=== PATIENT | female | born 1985 | race African-American/Black ===

== ENCOUNTER 2022-07-12 10:19 | Outpatient (REF) | payer OTHER, SELFPAY ==
[2022-07-12 11:14] LABS: Baso%MD 0.7 %; Eos%MD 2.3 %; Hematocrit 37.4 % (37.0-47.0); Hemoglobin 12.2 g/dl (12.0-16.0); IG%MD 0.3 %; Lymph%MD 41.3 %; Mean Corpuscular HGB Conc 32.6 g/dl (31.0-35.0); Mean Corpuscular Hemoglobin 27.7 pg (27.0-33.0); Mean Platelet Volume 10.2 fL (9.4-12.3); Mono%MD 5.9 %; Neut%MD 49.5 %; Platelet Count 356 X10*3/uL (160-400); Red Cell Distribution Width 12.1 % (11.0-16.0); White Blood Count 7.1 X10*3/uL (4.8-10.8)
[2022-07-12 11:52] LABS: Band Neutrophils Percent 0 % (3-5); Basophils Abs Manual 0.1 X10*3/uL (0.0-0.2); Basophils Percent Manual 1 % (0-2); Lymphocytes Percent Manual 42 % (20-40); Monocytes Absolute Manual 0.5 X10*3/uL (0.1-1.2); Monocytes Percent Manual 7 % (2-11); Neutrophils Absolute Manual 3.6 X10*3/uL (2.0-8.3); Neutrophils Percent Manual 50 % (45-73)
[2022-07-12 11:53] LABS: Alanine Aminotransferase 11 U/L (0-31); Albumin Level 4.3 g/dL (3.5-5.0); Alkaline Phosphatase 69 U/L (39-117); Anion Gap 12 (12-20); Aspartate Amino Transferase 13 U/L (5-31); Bilirubin Total 0.2 mg/dL (0.0-1.0); Blood Urea Nitrogen 19 mg/dL (9-16); Calcium 9.7 mg/dL (8.4-10.2); Carbon Dioxide 26 mmol/L (22-29); Chloride 104 mmol/L (96-108); Estimated Glomerular Filt Rate > 60; Glucose Fasting 108 mg/dL (60-99); Platelet Estimate NORMAL (NORMAL); Platelet Morphology Comment NORMAL; Potassium 4.2 mmol/L (3.3-5.1); RBC Morphology NORMAL; Sodium 138 mmol/L (135-145); Total Protein 7.9 g/dL (6.5-8.0)
[2022-07-12 12:13] LABS: Folate 12.5 ng/mL (> or = 4.0); Vitamin B12 416 pg/mL (200-900)
[2022-07-14 11:53] LABS: Syphilis Screen Nonreactive (Nonreactive)
[2022-07-15 02:33] LABS: Herpes Simplex Type 1 IgG <0.90 index; Herpes Simplex Type 2 IgG <0.90 index
[2022-07-17 15:03] LABS: Vitamin D 25-OH, D2 <4 ng/mL; Vitamin D 25-OH, D3 14 ng/mL; Vitamin D 25-OH, Total 14 ng/mL (30-100)
== END 2022-07-12 10:20 | disposition home or self-care (01) ==
LOC: HO.HMGCLDS 10:19
PROVIDERS: PCP Hospitalist; Visit Provider Nurse Practitioner Acute Care
DX: K14.0 Glossitis (principal); Z59.00 Homelessness unspecified
CPT/HCPCS: 36415; 80053; 82306; 82607; 82746; 85007; 85027; 86695; 86696; 86780

== ENCOUNTER 2023-07-16 01:57 | Emergency (ER) | payer OTHER, SELFPAY ==
--- NOTE | 2023-07-16 | ECG_ITS ---
Test Reason : CHEST PAIN Blood Pressure : / mmHG Vent. Rate : 084 BPM Atrial Rate : 084 BPM P-R Int : 132 ms QRS Dur : 070 ms QT Int : 382 ms P-R-T Axes : 016 087 067 degrees QTc Int : 451 ms Normal sinus rhythm Normal ECG When compared with ECG of 20-DEC-2013 07:49, No significant change was found Referred By: Generic ED Physician Electronically Signed By:JM MINER
--- NOTE | ~2023-07-16 | XR_ITS ---
EXAMINATION: XR CHEST CLINICAL INFORMATION: Chest pain COMPARISON: None available. TECHNIQUE: Frontal view of the chest was obtained. FINDINGS: Lungs are well-inflated and clear. Trachea is midline in position. No interstitial disease, consolidation or mass. No pleural effusion or pneumothorax. Cardiac silhouette and pulmonary vessels are normal in size. The mediastinum and bharathi have normal contour. The visualized bones and upper abdomen are unremarkable. XR/XR chest 1V IMPRESSION: Lungs have a normal appearance. No acute cardiopulmonary abnormality.
[2023-07-16 02:05] VITALS: BP 131/85; PULSE 85; RESP 18; TEMP 36.9; O2SAT 98; BMI 31.7
[2023-07-16 02:19] LABS: Basophils Absolute Auto 0.1 X10*3/uL (0.0-0.2); Basophils Percent Auto 0.5 % (0-2); Eosinophils Absolute Auto 0.3 X10*3/uL (0.0-0.4); Eosinophils Percent Auto 2.5 % (0-4); Hematocrit 35.7 % (37.0-47.0); Hemoglobin 12.1 g/dl (12.0-16.0); Imm Gran Abs Auto 0.01 X10*3/uL (0.00-0.03); Imm Gran Pct Auto 0.1 % (0.0-0.4); Lymphocytes Absolute Auto 5.5 X10*3/uL (1.2-4.9); Lymphocytes Percent Auto 54.6 % (20-40); Mean Corpuscular HGB Conc 33.9 g/dl (31.0-35.0); Mean Corpuscular Volume 82.6 fL (80.0-98.0); Mean Platelet Volume 9.5 fL (9.4-12.3); Monocytes Absolute Auto 0.6 X10*3/uL (0.1-1.2); Monocytes Percent Auto 5.6 % (2-11); Neutrophils Absolute Auto 3.7 x10*3/uL (2.0-8.3); Neutrophils Percent Auto 36.7 % (45-73); Platelet Count 352 X10*3/uL (160-400); Red Blood Count 4.32 X10*6/uL (4.20-5.50); SCAN SMEAR FLAG 1; White Blood Count 10.1 X10*3/uL (4.8-10.8)
[2023-07-16 02:20] LABS: MANUAL DIFF FLAG SCAN
[2023-07-16 02:33] LABS: Alanine Aminotransferase 11 U/L (0-31); Alkaline Phosphatase 63 U/L (39-117); Anion Gap 14 (12-20); Aspartate Amino Transferase 14 U/L (5-31); Bilirubin Total 0.1 mg/dL (0.0-1.0); Blood Urea Nitrogen 11 mg/dL (9-16); Calcium 9.3 mg/dL (8.4-10.2); Carbon Dioxide 23 mmol/L (22-29); Chloride 105 mmol/L (96-108); Creatinine Clr Calc Pharmacy 94.4; Estimated Glomerular Filt Rate > 60; Glucose Random 98 mg/dL (60-115); Potassium 3.4 mmol/L (3.3-5.1); Sodium 139 mmol/L (135-145); Total Protein 7.9 g/dL (6.5-8.0)
[2023-07-16 02:41] LABS: Troponin-I High Sensitivity < 2.7 ng/L (<3.5-17.0)
[2023-07-16 02:43] LABS: SLIDE REVIEW VERIFIED
[2023-07-16 05:13] VITALS: PULSE 82
[2023-07-16 06:02] VITALS: BP 122/69; PULSE 73; RESP 16; TEMP 36.7; O2SAT 97
--- NOTE | 2023-07-16 06:16 | ED.CHESTPAIN ---
HPI - Chest Pain General Chief Complaint: Chest Pain Stated Complaint: chest pain/arm & neck pain Time Seen by Provider: 07/16/23 05:09 History of Present Illness HPI narrative: Patient is a 37-year-old female presents today with having chest pain that has been ongoing for the last 3 days it is a constant pain. It is not associated with any shortness breath or diaphoresis. Patient has no history diabetes no history of hypertension no history of high cholesterol no history of smoking no history of NE no family history of NE. no history of blood clots no history of travel no history of control pills. No diaphoresis. No leg swelling. Patient from home. Denies any coughing congestion. No sudden deaths in the family. No radiation the pain. The pain is 1 spot on chest Related Data Home Medications Medication Instructions Recorded Confirmed cetirizine 10 mg tablet (Zyrtec) 10 mg PO DAILY PRN 07/12/22 Previous Rx's Medication Instructions Recorded benzocaine 10 % mucosal gel 1 appl mucous membrane TID PRN 07/12/22 (Anbesol (benzocaine)) mouth irritation #9 grams azithromycin 250 mg tablet See Rx Instructions PO .COMPLEX #6 07/18/22 tabs cholecalciferol (vitamin D3) 50 50 mcg PO DAILY #90 caps 07/18/22 mcg (2,000 unit) capsule cholecalciferol (vitamin D3) 1,250 1,250 mcg PO QWEEK #14 caps 07/21/22 mcg (50,000 unit) capsule sertraline 100 mg tablet 100 mg PO DAILY #90 tabs 08/07/22 Allergies Allergy/AdvReac Type Severity Reaction Status Date / Time No Known Allergies Allergy Verified 07/16/23 02:05 Review of Systems Review of Systems: Positive chest pain Yes all other systems are reviewed and are negative PMFSH Past Medical History Attestation statement: The following information was validated with the patient. Medical History Anxiety Family History Family History Father ADHD (attention deficit hyperactivity disorder) Mother Bipolar 1 disorder, depressed Depression Anxiety Social History Social History Housing: Condominium Patient Tobacco Use Status: Never used Tobacco Smoked in Last 30 Days: No e-Cigarette/Vaping Use: Never Used Use of substances other than those prescribed or required for medical reasons: No Advance Directives: No Advance Directives Information Provided: No Patient : No Current occupational status: employed Physical Exam Vital Signs: Vital Signs: Last Vital Signs Temp 98.1 F 07/16/23 06:02 Pulse 73 07/16/23 06:02 Resp 16 07/16/23 06:02 BP 122/69 07/16/23 06:02 Pulse Ox 97 07/16/23 06:02 O2 Del Method Room Air 07/16/23 06:02 BMI result Body Mass Index 31.7 Appearance: Alert. Oriented X3. No acute distress. Eyes: Pupils equal, round and reactive to light. ENT: Pharynx normal. Neck: Normal inspection. Neck supple. No lymph nodes noted. No crepitus CVS: Normal heart rate and rhythm. Pulses normal. Normal S1 and S2 Respiratory: No respiratory distress. Breath sounds normal. No Wheezing. No rales Abdomen: Soft and nontender. No rigidity. No distention. good BS x4 Skin: Skin warm and dry. Normal skin color. Normal skin turgor. Extremities: No lower extremity edema. Neurovascular intact to all extremities. No Lacerations. No Rash Neuro: Oriented X 3. No motor deficit. No sensory deficit. Moving all extermities. No slurred speech Medical Decision Making Medical Decision Making [facility] Narrative: Patient's chest pain atypical. Troponin is negative in the setting of having constant pain for 3 days atypical history no risk factor 37 years old patient's heart score is less than 3. Will have patient follow-up on an outpatient basis. Patient's chest pain knots anonymous with PE. Will discharge patient home into chest x-ray is negative. Chest x-ray done my interpretation chest x-ray grossly negative for any acute evidence of pneumonia no pneumothorax normal mediastinum. Differential Diagnosis Differential Diagnoses: The differential diagnosis associated with the presentation includes ACS, pneumonia, pneumothorax, PE Admission/Observation Consideration of admission/observation: Escalation of care including admission/observation considered Lab Data [facility] Lab Attestation statement: I reviewed the patient's lab results. 07/16/23 02:12 07/16/23 02:12 Labs: Lab Results 07/16/23 Range/Units 02:12 WBC 10.1 (4.8-10.8) X10*3/uL RBC 4.32 (4.20-5.50) X10*6/uL Hgb 12.1 (12.0-16.0) g/dl Hct 35.7 L (37.0-47.0) % MCV 82.6 (80.0-98.0) fL MCH 28.0 (27.0-33.0) pg MCHC 33.9 (31.0-35.0) g/dl RDW 12.0 (11.0-16.0) % Plt Count 352 (160-400) X10*3/uL MPV 9.5 (9.4-12.3) fL Immature Gran % (Auto) 0.1 (0.0-0.4) % Neut % (Auto) 36.7 L (45-73) % Lymph % (Auto) 54.6 H (20-40) % [place] % (Auto) 5.6 (2-11) % Eos % (Auto) 2.5 (0-4) % Baso % (Auto) 0.5 (0-2) % Lymph # (Auto) 5.5 H (1.2-4.9) X10*3/uL [place] # (Auto) 0.6 (0.1-1.2) X10*3/uL Eos # (Auto) 0.3 (0.0-0.4) X10*3/uL Baso # (Auto) 0.1 (0.0-0.2) X10*3/uL Abs Immat Gran (auto) 0.01 (0.00-0.03) X10*3/uL Absolute Neuts (auto) 3.7 (2.0-8.3) x10*3/uL Absolute Nucleated RBC 0.000 (0.0-0.012) X10*3/uL Nucleated RBC % (auto) 0.0 (0.0-0.2) /100WBC Smear Tech's Comments VERIFIED Sodium 139 (135-145) mmol/L Potassium 3.4 (3.3-5.1) mmol/L Chloride 105 (96-108) mmol/L Carbon Dioxide 23 (22-29) mmol/L Anion Gap 14 (12-20) BUN 11 (9-16) mg/dL Creatinine 0.73 (0.5-1.4) mg/dL Estim Creat Clear Calc 94.4 Estimated GFR > 60 Random Glucose 98 (60-115) mg/dL Calcium 9.3 (8.4-10.2) mg/dL Total Bilirubin 0.1 (0.0-1.0) mg/dL AST 14 (5-31) U/L ALT 11 (0-31) U/L Alkaline Phosphatase 63 (39-117) U/L Troponin I High Sens < 2.7 (<3.5-17.0) ng/L Total Protein 7.9 (6.5-8.0) g/dL Albumin 4.0 (3.5-5.0) g/dL Independent Interpretation I performed an independent interpretation of an: EKG (Sinus heart rate is 80 UT QRS QTC was normal limits no ST segment elevation) and Plain X-Ray (Chest x-ray grossly negative) Discharge Plan Discharge Clinical Impression: Chest pain Patient Disposition: Home, Self-Care Instructions: Chest Pain (ED) Prescriptions: No Action cholecalciferol (vitamin D3) 50 mcg (2,000 unit) capsule 50 mcg PO DAILY Qty: 90 0RF azithromycin 250 mg tablet See Rx Instructions PO .COMPLEX Qty: 6 0RF Rx Instructions: For 250 mg dose pack: take 500 mg today (day 1), then 250 mg for 4 days (days 2-5) PO cholecalciferol (vitamin D3) 1,250 mcg (50,000 unit) capsule 1,250 mcg PO QWEEK Qty: 14 3RF sertraline 100 mg tablet 100 mg PO DAILY Qty: 90 1RF cetirizine [Zyrtec] 10 mg tablet 10 mg PO DAILY PRN Anbesol (benzocaine) 10 % gel 1 appl mucous membrane TID PRN (Reason: mouth irritation) Qty: 9 0RF Referrals: Sai Maya MD [Physician] -
[2023-07-16 06:44] VITALS: BP 122/69; PULSE 73; RESP 16; TEMP 36.7; O2SAT 97
== END 2023-07-16 06:49 | disposition home or self-care (01) ==
PROVIDERS: Emergency Provider Emergency Medicine Emergency Medical Services
DX: R07.89 Other chest pain (principal); M54.2 Cervicalgia; Z79.899 Other long term (current) drug therapy
CPT/HCPCS: 36415; 71045; 80053; 84484; 85025; 93005; 99283; 99285

== ENCOUNTER → 2023-07-16 02:00 | Outpatient (BNV) | payer OTHER, SELFPAY | PROVIDERS: Emergency Provider Emergency Medicine Emergency Medical Services; Visit Provider Internal Medicine | DX: R07.9 Chest pain, unspecified (principal) | CPT/HCPCS: 93010 ==

== ENCOUNTER 2023-07-27 15:56 | Emergency (ER) | payer OTHER, SELFPAY ==
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
[2023-07-27 16:10] VITALS: BP 124/78; BP 126/80; PULSE 88; PULSE 90; RESP 16; TEMP 37.1; O2SAT 100; O2SAT 98; BMI 31.6
[2023-07-27 18:45] VITALS: BP 114/70; PULSE 92; RESP 18; TEMP 37; O2SAT 98
== END 2023-07-27 18:46 | disposition home or self-care (01) ==
PROVIDERS: Emergency Provider Student in an Organized Health Care Education/Training Program
DX: S29.9XXA Unspecified injury of thorax, initial encounter (principal); S13.4XXA Sprain of ligaments of cervical spine, initial encounter; R51.9 Headache, unspecified; M54.2 Cervicalgia; M25.561 Pain in right knee; M79.642 Pain in left hand; V43.52XA Car driver injured in collision with other type car in traffic accident, initial encounter; Y93.9 Activity, unspecified; Y92.410 Unspecified street and highway as the place of occurrence of the external cause; Y99.8 Other external cause status; Z79.899 Other long term (current) drug therapy
CPT/HCPCS: 70450; 71250; 72125; 73130; 73562; 99283; 99284

== ENCOUNTER 2023-07-31 10:13 | Outpatient (AMB) | payer OTHER, SELFPAY ==
[2023-07-31 10:15] VITALS: BP 120/68; PULSE 96; O2SAT 98; BMI 31.9
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
== END 2023-07-31 11:27 | disposition home or self-care (01) ==
PROVIDERS: PCP Physician Assistant; Visit Provider Physician Assistant Medical
DX: M62.830 Muscle spasm of back (principal)
CPT/HCPCS: 99213

== ENCOUNTER 2023-08-11 09:08 | Outpatient (AMB) | payer OTHER, SELFPAY ==
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
[2023-08-11 09:15] VITALS: BP 118/62; PULSE 90; RESP 12; BMI 33.2
== END 2023-08-11 10:00 | disposition home or self-care (01) ==
PROVIDERS: PCP Physician Assistant; Visit Provider Physician Assistant
DX: M54.2 Cervicalgia (principal); M54.50 Low back pain, unspecified; V89.2XXA Person injured in unspecified motor-vehicle accident, traffic, initial encounter; M25.571 Pain in right ankle and joints of right foot; J98.59 Other diseases of mediastinum, not elsewhere classified
CPT/HCPCS: 99214

== ENCOUNTER 2023-08-18 08:03 | Outpatient (AMB) | payer OTHER, SELFPAY ==
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
[2023-08-18 08:11] VITALS: BP 122/78; PULSE 95; RESP 14; TEMP 37.1; O2SAT 98; BMI 31.5
== END 2023-08-18 08:55 | disposition home or self-care (01) ==
PROVIDERS: PCP Physician Assistant; Visit Provider Physician Assistant
DX: Z00.00 Encounter for general adult medical examination without abnormal findings (principal); E55.9 Vitamin D deficiency, unspecified; F41.8 Other specified anxiety disorders; M54.2 Cervicalgia
CPT/HCPCS: 1124F; 99395

== ENCOUNTER 2023-08-18 09:07 | Outpatient (REF) | payer OTHER, SELFPAY ==
[2023-08-18 11:36] LABS: MANUAL DIFF FLAG NO
[2023-08-18 11:41] LABS: Basophils Percent Auto 0.5 % (0-2); Eosinophils Absolute Auto 0.1 X10*3/uL (0.0-0.4); Hematocrit 36.1 % (37.0-47.0); Hemoglobin 11.9 g/dl (12.0-16.0); Imm Gran Abs Auto 0.01 X10*3/uL (0.00-0.03); Imm Gran Pct Auto 0.2 % (0.0-0.4); Lymphocytes Absolute Auto 2.6 X10*3/uL (1.2-4.9); Lymphocytes Percent Auto 42.7 % (20-40); Mean Corpuscular Hemoglobin 27.8 pg (27.0-33.0); Mean Corpuscular Volume 84.3 fL (80.0-98.0); Mean Platelet Volume 10.2 fL (9.4-12.3); Monocytes Absolute Auto 0.4 X10*3/uL (0.1-1.2); Neutrophils Percent Auto 48.6 % (45-73); Platelet Count 350 X10*3/uL (160-400); Red Blood Count 4.28 X10*6/uL (4.20-5.50); Red Cell Distribution Width 12.5 % (11.0-16.0); White Blood Count 6.1 X10*3/uL (4.8-10.8)
[2023-08-18 12:34] LABS: Alanine Aminotransferase 13 U/L (0-31); Albumin Level 4.1 g/dL (3.5-5.0); Alkaline Phosphatase 63 U/L (39-117); Anion Gap 11 (12-20); Aspartate Amino Transferase 17 U/L (5-31); Bilirubin Total 0.4 mg/dL (0.0-1.0); Blood Urea Nitrogen 16 mg/dL (9-16); Calcium 9.5 mg/dL (8.4-10.2); Carbon Dioxide 28 mmol/L (22-29); Chloride 104 mmol/L (96-108); Cholesterol 257 mg/dL (<200); Estimated Glomerular Filt Rate > 60; Glucose Random 95 mg/dL (60-115); HDL Cholesterol 39 mg/dL (>40); Iron 108 mcg/dL (30-160); LDL Cholesterol Calculated 191 mg/dL (<100); Percent Iron Saturation 43 % (15-50); Potassium 3.6 mmol/L (3.3-5.1); Sodium 139 mmol/L (135-145); Total Iron Binding Capacity 253 mcg/dL (228-428); Total Protein 8.1 g/dL (6.5-8.0); Triglycerides 137 mg/dL (<150); Unsaturated Iron Binding 145 ug/dL
[2023-08-18 12:41] LABS: Ferritin 76 ng/mL (10-122); TSH reflex Free T4 1.52 uIU/mL (0.32-4.0); Vitamin D 25-OH Total 33.1 ng/mL (>30)
[2023-08-18 12:55] LABS: Vitamin B12 514 pg/mL (200-900)
== END 2023-08-18 09:08 | disposition home or self-care (01) ==
LOC: HO.WFDLDS 09:07
PROVIDERS: Visit Provider Physician Assistant
DX: Z00.00 Encounter for general adult medical examination without abnormal findings (principal); E55.9 Vitamin D deficiency, unspecified; F41.8 Other specified anxiety disorders
CPT/HCPCS: 36415; 80053; 80061; 82306; 82607; 82728; 82746; 83540; 84443; 85025

== ENCOUNTER 2023-09-14 09:00 | Outpatient (RCR) | payer OTHER, SELFPAY ==
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
== END 2023-11-25 12:30 | disposition home or self-care (01) ==
LOC: HO.PT 09:00
PROVIDERS: PCP Physician Assistant; Visit Provider Physician Assistant
DX: M54.50 Low back pain, unspecified (principal); M54.2 Cervicalgia; V89.2XXD Person injured in unspecified motor-vehicle accident, traffic, subsequent encounter
CPT/HCPCS: 97014; 97110; 97112; 97140; 97161

== ENCOUNTER 2023-09-16 10:14 | Outpatient (AMB) | payer OTHER, SELFPAY ==
--- NOTE | 2023-09-16 10:25 | MHC.PC.OV ---
Vital Signs 09/16/23 10:26 Height 5 ft 0.35 in Weight 165 lb 2 oz BMI 31.9 BP 102/68 Blood Pressure Location Lt radial Position Sitting Respiration 14 Pulse 100 Pulse Source Pulse Oximeter Pulse Oximetry (%) 97 Oxygen Delivery Method Room Air Intake Visit Reasons: depression med Intake Note: Follow up depression Tank Builder And Erector Required: No Allergies No Known Allergies Allergy (Verified 09/16/23 10:25) Medication List - Last Reconciled 09/16/23 by Krystyna Connelly PA-C bupropion HCl XL (Wellbutrin XL) 300 mg PO QAM cetirizine (Zyrtec) 10 mg PO DAILY PRN cyclobenzaprine 5 mg PO TID PRN 7 days ibuprofen 600 mg PO Q8H PRN sertraline 100 mg PO DAILY Tobacco use date assessed: 08/18/23 Dental Screening Dental Screen Date: 08/11/23 HPI depression med HPI Details Patient is a 37-year-old female who presents today for a follow up. Psych: At our last visit she was started on Wellbutrin in addition to her sertraline for her anxiety and depression. She states that it has helped with her motivation and somewhat with her emotional eating. She is wondering if we could try an increased dose because she does not like that she emotionally eats. She states that she is very frustrated with her weight and would feel happier if she lost weight. Has an MRI booked for a mediastinal mass next Thursday and states that she does get claustrophobic. She thinks that she would benefit from possibly taking something for this procedure. General: She would like to see a lean leader. Tries to increase her salads but states that she just does not like salads and wants to try other foods especially now that she has high cholesterol. CV: Blood pressure today is WNL. Denies any chest pain, shortness on breath or palpitations. [facility] Medical History (Updated 09/16/23 @ 10:45 by Krystyna Connelly PA-C) Obesity (BMI 30.0-34.9) Dyslipidemia Anxiety Family History (Updated 08/11/23 @ 10:38 by Edie Mondragon CMA) Father ADHD (attention deficit hyperactivity disorder) Hypercholesteremia Prostate cancer Alcoholism Psychiatric disorder Mother Bipolar 1 disorder, depressed Depression Anxiety HTN (hypertension) Hypercholesteremia Diabetes Alcoholism Psychiatric disorder Maternal Grandmother Diabetes Ovarian cancer Psychiatric disorder Other Mental disorder Substance abuse Social History Housing: Condominium Patient Tobacco Use Status: Never used Tobacco e-Cigarette/Vaping Use: Never Used Second Hand Smoke Exposure: No service: No 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 1. Little interest or pleasure in doing things: nearly every day 2. Feeling down, depressed, or hopeless: not at all 3. Trouble falling or staying asleep, or sleeping too much: not at all 4. Feeling tired or having little energy: nearly every day 5. Poor appetite or overeating: nearly every day 6. Feeling bad about yourself - or that you are a failure or have let yourself or your family down: not at all 7. Trouble concentrating on things, such as reading the newspaper or watching television: nearly every day 8. Moving or speaking so slowly that other people could have noticed. Or the opposite - being so fidgety or restless that you have been moving around a lot more than usual: several days 9. Thoughts that you would be better off or of hurting yourself in some way: not at all Total score: 13 Depression Screening Interpretation: Positive Depression Screening Done: Yes 22046 - PHQ-9 Billing: Yes Source: Developed by Drs. Donald Lawler, Candelaria Sebastian, Uriel Pineda and colleagues, with an educational reyna from [employer]. Thrive Questionnaire Date Thrive assessed: 08/11/23 JANE-7 AMB Questionnaire JANE-7 Date JANE - 7 assessed: 09/16/23 Feeling nervous, anxious, or on edge: 2 = More than half the days Not being able to stop or control worryin = Nearly every day Worrying too much about different things: 2 = More than half the days Trouble relaxin = More than half the days Being so restless that it is hard to sit still: 0 = Not at all Becoming easily annoyed or irritable: 0 = Not at all Feeling afraid as if something awful might happen: 3 = Nearly every day Total JANE-7 score (0-4 normal; 5-9 mild; 10-14 moderate; 15-21 severe): 12 Source: Developed by Drs. Donald Lawler, Candelaria Sebastian, Uriel Pineda and colleagues, with an educational reyna from [employer]. JANE-7 Assessment Billing JANE-7 Assessment Tool: JANE-7 Assessment 52094 Physical exam (Primary Care) Vital Signs: Last Vital Signs Pulse 100 09/16/23 10:26 Resp 14 09/16/23 10:26 BP 102/68 09/16/23 10:26 Pulse Ox 97 09/16/23 10:26 Oxygen Delivery Method Room Air 09/16/23 10:26 BMI result Body Mass Index 31.9 BMI Assessment/Plan discussion: High BMI High, discussed plan: lifestyle, weight reduction and physical activity Tobacco/Smoking Status: Tobacco use Status Tobacco use date assessed 08/18/23 09/16/23 10:30 Patient Tobacco Use Status Never used Tobacco 09/16/23 10:30 e-Cigarette/Vaping Use Never Used 09/16/23 10:30 PHQ-9: PHQ-9 Score PHQ-9: Total score 13 09/16/23 10:42 Depression Screening Interpretation: Positive Thrive Assessment: Date of Thrive Assessment Date Thrive assessed 08/11/23 09/16/23 10:30 Const Orientation/consciousness: patient oriented x3 HENMT Ears: hearing grossly normal bilaterally Neck Thyroid: Thyroid normal Lymphatic: no lymphadenopathy noted Resp Auscultation: clear to auscultation bilaterally Cardio Rate: regular rate Rhythm: regular rhythm Heart sounds: S1 normal heart sound present and S2 normal heart sound present GI Inspection: Yes normal to inspection Palpation (GI): Soft to palpation and Other GI palpation findings present (nontender, no cva tenderness) Auscultation: normoactive bowel sounds Rectal Exam - Female: deferred Skin General skin exam: no rashes or lesions noted Neuro General: patient oriented x3, gait normal and no focal motor deficits Assessment and Plan Assessment & Plan (1) Anxiety with depression: Code(s): F41.8 - Other specified anxiety disorders Plan: increased wellbutrin. will give rx for lorazepam. discussed she will need a ride to and from MRI. advised to avoid drinking and or driving with this medication. discussed addiction risk. (2) Dyslipidemia: Code(s): E78.5 - Hyperlipidemia, unspecified Plan: referral to nutrition. phone number provided. will recheck labs in 6 months. Plan f/u 6 weeks for med check or sooner prn. pt understands and agrees with the plan. Orders: Referrals Oracle Security Consultant Nutrition Referral E66.9 - Obesity, unspecified, E78.5 - Hyperlipidemia, unspecified, F41.8 - Other specified anxiety disorders Medications: New bupropion HCl XL (Wellbutrin XL) 300 mg PO QAM 90 tabs 1RF Coding Level of Care Code Est Pt Level 4 (92660) Complex EM visit Add On G2211 Diagnoses Anxiety with depression F41.8 Dyslipidemia E78.5 Additional Codes JAEN-7 Assessment Billing - JANE-7 Assessment Tool: JANE-7 Assessment 23973 ([id number])
[2023-09-16 10:26] VITALS: BP 102/68; PULSE 100; RESP 14; O2SAT 97; BMI 31.9
== END 2023-09-16 10:55 | disposition home or self-care (01) ==
PROVIDERS: PCP Physician Assistant; Visit Provider Physician Assistant
DX: F41.8 Other specified anxiety disorders (principal); E78.5 Hyperlipidemia, unspecified
CPT/HCPCS: 96127; 99214; G2211

== ENCOUNTER 2023-09-25 10:43 | Outpatient (REF) | payer OTHER, SELFPAY ==
--- NOTE | ~2023-09-25 | MR_ITS ---
EXAMINATION: MR CHEST WITHOUT AND WITH CONTRAST CLINICAL INFORMATION: Follow-up mediastinal lesion. COMPARISON: Previous chest x-ray June [address] July 2023. TECHNIQUE: Sagittal, axial and coronal sequences through the chest with and without contrast. Patient received 7.5 mL IV Gadavist contrast. FINDINGS: There is a 1 x 2 cm low signal T1, high signal T2 weighted sequences lesion in the anterior superior mediastinum just superior to the manubrium. This does not demonstrate enhancement and likely represents a cyst. Given this is slightly high signal on noncontrast chest CT this probably represents a proteinaceous cyst. No enlarged hilar or mediastinal lymph nodes. Normal heart size. Vascular structures appear normal. Lungs are clear. No pleural effusion. No chest wall mass or enlarged axillary lymph nodes. Images of the lower neck and/or upper abdomen on coronal and sagittal sequences unremarkable. Bone marrow signal is normal. MR/MR chest wo/w con IMPRESSION: 1 x 2 cm low signal T1, high signal T2 nonenhancing lesion in the anterior superior mediastinum just above the manubrium suggestive of a cyst. Given that this is slightly high attenuation on noncontrast enhanced CT this probably represents a proteinaceous cyst. Imaging follow-up in 6 months to ensure stability recommended.
[2023-09-25] MEDS: gadobutroL 7.5 ML VIAL IVPUSH (12:11)
== END 2023-09-25 10:44 | disposition home or self-care (01) ==
LOC: HO.MRI 10:43
PROVIDERS: PCP Physician Assistant; Visit Provider Physician Assistant
DX: J98.59 Other diseases of mediastinum, not elsewhere classified (principal)
CPT/HCPCS: 71552; A9585

== ENCOUNTER 2023-10-12 10:58 | Outpatient (AMB) | payer OTHER, SELFPAY ==
--- NOTE | 2023-10-12 11:13 | MHC.AMNUTRGE ---
VS Expanded 10/12/23 11:14 10/19/23 12:41 Height 5 ft 5 ft Weight 159 lb 2.78 oz 159 lb BMI 31.1 31.0 Intake Visit Reasons: Obesity/CONFIRMED Allergies No Known Allergies Allergy (Verified 09/16/23 10:25) Nutrition Presentation Details: Pt presents for MNT for dyslipidemia. THe Pt was referred PCP, Hui Pt has hx of obesity, anxiety, depression Typical meal intake B; 7am bagel with egg/cheese, juice or oatmeal (flavored maple 2, water and protein powder), water or juice snack: peanut butter cracker water or juice or fruit L chicken nuggets- fast meals/snacks D: rice/banes food frequency fruit: 0-1/d vex/wk dairy: 2-3/day fish: 0-1/m physical activity: daily life activities etoh/smoking --- BS Monitoring Most Recent Diabetes Results: Cholesterol 257 mg/dL (<200) H 08/18/23 HDL Cholesterol 39 mg/dL (>40) L 08/18/23 Triglycerides 137 mg/dL (<150) 08/18/23 Creatinine 0.74 mg/dL (0.5-1.4) 08/18/23 Blood Urea Nitrogen 16 mg/dL (9-16) 08/18/23 Sodium 139 mmol/L (135-145) 08/18/23 Potassium 3.6 mmol/L (3.3-5.1) 08/18/23 Chloride 104 mmol/L (96-108) 08/18/23 Carbon Dioxide 28 mmol/L (22-29) 08/18/23 Calcium 9.5 mg/dL (8.4-10.2) 08/18/23 AST 17 U/L (5-31) 08/18/23 ALT 13 U/L (0-31) 08/18/23 Total Protein 8.1 g/dL (6.5-8.0) H 08/18/23 Albumin 4.1 g/dL (3.5-5.0) 08/18/23 QHT-Kzmzyyw-Gv.Jeor Equation Height: 5 ft Weight: 159 lb Resting Metabolic Rate: 1329.95 Calculated Activity Level: Sedentary Calories Needed to Maintain Weight: 1595.94 Diagnosis Nutrition problem #1: food nutri know defi As related to (etiology) #1: diagnosis As evidenced by (sign/symptom) #1: knowledge deficit of diet [facility] Medical History (Updated 09/16/23 @ 10:45 by Krystyna Connelly PA-C) Obesity (BMI 30.0-34.9) Dyslipidemia Anxiety Family History (Updated 08/11/23 @ 10:38 by Edie Mondragon CMA) Father ADHD (attention deficit hyperactivity disorder) Hypercholesteremia Prostate cancer Alcoholism Psychiatric disorder Mother Bipolar 1 disorder, depressed Depression Anxiety HTN (hypertension) Hypercholesteremia Diabetes Alcoholism Psychiatric disorder Maternal Grandmother Diabetes Ovarian cancer Psychiatric disorder Other Mental disorder Substance abuse Social History Housing: Condominium Patient Tobacco Use Status: Never used Tobacco e-Cigarette/Vaping Use: Never Used Second Hand Smoke Exposure: No service: No 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 Current occupational exposures/hazards: No Cognitive needs: No Hearing needs: No Vision needs: No Assessment & Plan Assessment & Plan (1) Dyslipidemia: Code(s): E78.5 - Hyperlipidemia, unspecified Category: Medical Plan: Wt: 72 Kg ( 09/2023 ) Est kcal needs as per MSJ: 1600 (40% carb, 30% protein/fat) Est fluid needs as per 25-30 ml/d:2200 Est prot per day as per 1 g/kg bw: 72 Recommend fiber intake : 8-10 g per day and gradually increase to 25-28 g per day for women and 35-38 g for men or as tolerated Recommend sodium intake per day : less than 2000 mg Educated patient on: ( R = reviewed V = verbalizes understanding N/R = needs review N/A = not applicable Food sources of carbohydrate, adequate serving sizes and its role in various health conditions: R Differences between complex carbohydrates a simple carbohydrates, role of fiber in diet: R Lean protein sources of foods: R Differences between types of fats and role in diet (mono on saturated fat fatty acids, saturated fatty acids, trans fats): R Food sources of sodium in salt and healthy modifications for heart health in kidney health: R V R/V Vitamins and minerals: R V N/R Healthy plate method concept: R Physical activity: Benefits a precaution: R V N/R Patient Instructions: Work on reducing cholesterol by having a fruit in place of pastries, 2 x/wk Follow healthy plate at dinner 5-6 times/wk see low cholesterol food concept from [facility] printed Coding Level of Care Code Nutr Indiv Intake (57074) Diagnoses Dyslipidemia E78.5 Time Spent (min) 30
[2023-10-12 11:14] VITALS: BMI 31.1
[2023-10-20 12:41] VITALS: BMI 31.0
== END 2023-10-12 11:53 | disposition home or self-care (01) ==
PROVIDERS: PCP Physician Assistant; Visit Provider Dietitian, Registered
DX: E78.5 Hyperlipidemia, unspecified (principal)

== ENCOUNTER → 2023-10-12 10:58 | Outpatient (BNVA) | payer OTHER, SELFPAY | PROVIDERS: PCP Physician Assistant; Visit Provider Dietitian, Registered | DX: E78.5 Hyperlipidemia, unspecified (principal); E66.9 Obesity, unspecified; Z68.31 Body mass index [BMI] 31.0-31.9, adult; Z71.3 Dietary counseling and surveillance | CPT/HCPCS: 97802 ==

== ENCOUNTER 2023-11-23 09:03 | Outpatient (AMB) | payer OTHER, SELFPAY ==
[2023-11-23 09:13] VITALS: BMI 30.6
--- NOTE | 2023-11-23 09:13 | MHC.AMNUTRGE ---
VS Expanded 11/23/23 09:13 Height 5 ft Weight 156 lb 8.451 oz BMI 30.6 Intake Visit Reasons: high cholesterol/CONFIRMED Allergies No Known Allergies Allergy (Verified 09/16/23 10:25) Nutrition Presentation Details: Pt presents for MNT f/u for elevated cholesterol Pt reports working on incorporating fiber rich foods and engaging in walking at least 10 min /day w dog reports challenges with evening meals d/t inc hunger looking forward to mud race w fam members BS Monitoring Most Recent Diabetes Results: Cholesterol 257 mg/dL (<200) H 08/18/23 HDL Cholesterol 39 mg/dL (>40) L 08/18/23 Triglycerides 137 mg/dL (<150) 08/18/23 Creatinine 0.74 mg/dL (0.5-1.4) 08/18/23 Blood Urea Nitrogen 16 mg/dL (9-16) 08/18/23 Sodium 139 mmol/L (135-145) 08/18/23 Potassium 3.6 mmol/L (3.3-5.1) 08/18/23 Chloride 104 mmol/L (96-108) 08/18/23 Carbon Dioxide 28 mmol/L (22-29) 08/18/23 Calcium 9.5 mg/dL (8.4-10.2) 08/18/23 AST 17 U/L (5-31) 08/18/23 ALT 13 U/L (0-31) 08/18/23 Total Protein 8.1 g/dL (6.5-8.0) H 08/18/23 Albumin 4.1 g/dL (3.5-5.0) 08/18/23 [facility] Medical History (Updated 09/16/23 @ 10:45 by Krystyna Connelly PA-C) Obesity (BMI 30.0-34.9) Dyslipidemia Anxiety Family History (Updated 08/11/23 @ 10:38 by Edie Mondragon CMA) Father ADHD (attention deficit hyperactivity disorder) Hypercholesteremia Prostate cancer Alcoholism Psychiatric disorder Mother Bipolar 1 disorder, depressed Depression Anxiety HTN (hypertension) Hypercholesteremia Diabetes Alcoholism Psychiatric disorder Maternal Grandmother Diabetes Ovarian cancer Psychiatric disorder Other Mental disorder Substance abuse Social History Housing: Condominium Patient Tobacco Use Status: Never used Tobacco e-Cigarette/Vaping Use: Never Used Second Hand Smoke Exposure: No service: No 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 Current occupational exposures/hazards: No Cognitive needs: No Hearing needs: No Vision needs: No Assessment & Plan Assessment & Plan (1) Dyslipidemia: Code(s): E78.5 - Hyperlipidemia, unspecified Category: Medical Plan: Wt: 72 Kg ( 09/2023 ), 71 kg (10/2023) Est kcal needs as per MSJ: 1600 (40% carb, 30% protein/fat) Est fluid needs as per 25-30 ml/d:2200 Est prot per day as per 1 g/kg bw: 72 Recommend fiber intake : 8-10 g per day and gradually increase to 25-28 g per day for women and 35-38 g for men or as tolerated Recommend sodium intake per day : less than 2000 mg Educated patient on: ( R = reviewed V = verbalizes understanding N/R = needs review N/A = not applicable Food sources of carbohydrate, adequate serving sizes and its role in various health conditions: R Differences between complex carbohydrates a simple carbohydrates, role of fiber in diet: R Lean protein sources of foods: R Differences between types of fats and role in diet (mono on saturated fat fatty acids, saturated fatty acids, trans fats): R Food sources of sodium in salt and healthy modifications for heart health in kidney health: R V R/V Vitamins and minerals: R V N/R Healthy plate method concept: R Physical activity: Benefits a precaution: R V N/R Patient Instructions: Choose yogurt with fruits or nuts as bedtime snack Read food labels, (serving size, sat'd fats, chol and riber) choosing low % DV for fats/chol and high % DV for fiber refer to ed material Coding Level of Care Code Nutr Indiv Subseq (98734) Diagnoses Dyslipidemia E78.5 Time Spent (min) 30
== END 2023-11-23 09:47 | disposition home or self-care (01) ==
PROVIDERS: PCP Physician Assistant; Visit Provider Dietitian, Registered
DX: E78.5 Hyperlipidemia, unspecified (principal)

== ENCOUNTER → 2023-11-23 09:03 | Outpatient (BNVA) | payer OTHER, SELFPAY | PROVIDERS: PCP Physician Assistant; Visit Provider Dietitian, Registered | DX: E78.5 Hyperlipidemia, unspecified (principal); Z71.3 Dietary counseling and surveillance | CPT/HCPCS: 97803 ==

== ENCOUNTER 2024-01-11 13:52 | Outpatient (AMB) | payer OTHER, SELFPAY ==
--- NOTE | 2024-01-11 14:17 | MHC.AMNUTRGE ---
VS Expanded 01/11/24 14:17 Height 5 ft Weight 153 lb 7.068 oz BMI 30.0 Intake Visit Reasons: high chol/LVM Allergies No Known Allergies Allergy (Verified 09/16/23 10:25) Nutrition Presentation Details: Pt presents for MTN f/u for hyperlipidemia Pt reports continuing to engage in walking 30 minutes daily in the evening with sibling/dog Working on choosing lower fat food options when eating out, meal prep and reducing on sweets BS Monitoring Most Recent Diabetes Results: Cholesterol 257 mg/dL (<200) H 08/18/23 HDL Cholesterol 39 mg/dL (>40) L 08/18/23 Triglycerides 137 mg/dL (<150) 08/18/23 Creatinine 0.74 mg/dL (0.5-1.4) 08/18/23 Blood Urea Nitrogen 16 mg/dL (9-16) 08/18/23 Sodium 139 mmol/L (135-145) 08/18/23 Potassium 3.6 mmol/L (3.3-5.1) 08/18/23 Chloride 104 mmol/L (96-108) 08/18/23 Carbon Dioxide 28 mmol/L (22-29) 08/18/23 Calcium 9.5 mg/dL (8.4-10.2) 08/18/23 AST 17 U/L (5-31) 08/18/23 ALT 13 U/L (0-31) 08/18/23 Total Protein 8.1 g/dL (6.5-8.0) H 08/18/23 Albumin 4.1 g/dL (3.5-5.0) 08/18/23 COUNT INCLUDES THE [facility] Medical History (Updated 09/16/23 @ 10:45 by Krystyna Connelly PA-C) Obesity (BMI 30.0-34.9) Dyslipidemia Anxiety Family History (Updated 08/11/23 @ 10:38 by Edie Mondragon CMA) Father ADHD (attention deficit hyperactivity disorder) Hypercholesteremia Prostate cancer Alcoholism Psychiatric disorder Mother Bipolar 1 disorder, depressed Depression Anxiety HTN (hypertension) Hypercholesteremia Diabetes Alcoholism Psychiatric disorder Maternal Grandmother Diabetes Ovarian cancer Psychiatric disorder Other Mental disorder Substance abuse Social History Housing: Condominium Patient Tobacco Use Status: Never used Tobacco e-Cigarette/Vaping Use: Never Used Second Hand Smoke Exposure: No service: No 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 Current occupational exposures/hazards: No Cognitive needs: No Hearing needs: No Vision needs: No Assessment & Plan Assessment & Plan (1) Dyslipidemia: Code(s): E78.5 - Hyperlipidemia, unspecified Category: Medical Plan: Wt: 72 Kg ( 09/2023 ), 71 kg (10/2023), 69.5 kg (01/18) Est kcal needs as per MSJ: 1600 (40% carb, 30% protein/fat) Est fluid needs as per 25-30 ml/d:2200 Est prot per day as per 1 g/kg bw: 72 Recommend fiber intake : 8-10 g per day and gradually increase to 25-28 g per day for women and 35-38 g for men or as tolerated Recommend sodium intake per day : less than 2000 mg Educated patient on: ( R = reviewed V = verbalizes understanding N/R = needs review N/A = not applicable Food sources of carbohydrate, adequate serving sizes and its role in various health conditions: R Differences between complex carbohydrates a simple carbohydrates, role of fiber in diet: R Lean protein sources of foods: R Differences between types of fats and role in diet (mono on saturated fat fatty acids, saturated fatty acids, trans fats): R Food sources of sodium in salt and healthy modifications for heart health in kidney health: R V R/V Vitamins and minerals: R V N/R Healthy plate method concept: R Physical activity: Benefits a precaution: R V Patient Instructions: Choose grilled vs foods with batter/breading Include fiber rich foods, vegetable of choice (at least 1 cup) , choose seeds/nuts as snack keep hydrated by having water with meals Coding Level of Care Code Nutr Indiv Subseq (82552) Diagnoses Dyslipidemia E78.5 Time Spent (min) 25
== END 2024-01-11 14:41 | disposition home or self-care (01) ==
PROVIDERS: PCP Physician Assistant; Visit Provider Dietitian, Registered
DX: E78.5 Hyperlipidemia, unspecified (principal)

== ENCOUNTER → 2024-01-11 13:52 | Outpatient (BNVA) | payer OTHER, SELFPAY | PROVIDERS: PCP Physician Assistant; Visit Provider Dietitian, Registered | DX: E78.5 Hyperlipidemia, unspecified (principal); Z71.3 Dietary counseling and surveillance | CPT/HCPCS: 97803 ==

== ENCOUNTER 2024-03-01 11:30 | Outpatient (REF) | payer OTHER, SELFPAY ==
[2024-03-02 11:48] LABS: HPV 16,18/45 See PAP report
== END 2024-03-01 11:31 | disposition home or self-care (01) ==
LOC: HO.LNP 11:30
PROVIDERS: PCP Physician Assistant; Visit Provider Obstetrics & Gynecology
DX: Z01.419 Encounter for gynecological examination (general) (routine) without abnormal findings (principal); Z11.51 Encounter for screening for human papillomavirus (HPV); R87.810 Cervical high risk human papillomavirus (HPV) DNA test positive
CPT/HCPCS: 87624; 88175

== ENCOUNTER 2024-03-01 11:30 | Outpatient (AMB) | payer OTHER, SELFPAY ==
--- NOTE | 2024-03-01 11:50 | A.OFFVIS_ITS ---
Vital Signs 03/01/24 11:51 Height 5 ft Weight 152 lb 6 oz BMI 29.8 BP 116/68 Blood Pressure Location Lt brachial Position Sitting Intake Visit Reasons: New patient Annual/DO NOT RS Allergies No Known Allergies Allergy (Verified 03/01/24 11:53) Is last menstrual period known: Yes Last menstrual period: 02/08/24 HPI Comments Details: Presenting for annual exam. Complaining of right vulvar skin tag Last Pap/HPV was in 03/12 was negative [facility] Medical History Obesity (BMI 30.0-34.9) Dyslipidemia Anxiety Family History Father ADHD (attention deficit hyperactivity disorder) Hypercholesteremia Prostate cancer Alcoholism Psychiatric disorder Mother Bipolar 1 disorder, depressed Depression Anxiety HTN (hypertension) Hypercholesteremia Diabetes Alcoholism Psychiatric disorder Maternal Grandmother Diabetes Ovarian cancer Psychiatric disorder Other Mental disorder Substance abuse Social History Housing: Condominium Patient Tobacco Use Status: Never used Tobacco e-Cigarette/Vaping Use: Never Used Second Hand Smoke Exposure: No service: No 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 Current occupational exposures/hazards: No Cognitive needs: No Hearing needs: No Vision needs: No Female Reproductive History Menstrual Age of Menarche: 13 Duration of menses: 3-5 days Date of last menstrual period: 02/08/24 control method: none Total pregnancies: 0 Date of last pap smear: 03/05/16 History of abnormal pap smear: No History of STI: Yes (Chlamydia) Review of Systems Const All systems reviewed & are unremarkable except as noted in HPI and below Card Reports as per HPI Resp Reports as per HPI GI Reports as per HPI and Reports no additional complaints Reports as per HPI Physical Exam Vital Signs: Last Vital Signs BP 116/68 03/01/24 11:51 BMI result Body Mass Index 29.8 Const General: cooperative, healthy appearing and comfortable Chest Chest palpation & inspection: normal inspection of the chest and normal palpation of entire chest wall Breast/axilla inspection: normal inspection of the breasts and normal inspection of the axillae Breast/axilla palpation: normal palpation of the breasts, normal palpation of the axillae and no axillary lymphadenopathy Resp Effort & Inspection: normal respiratory effort Auscultation: clear to auscultation bilaterally Percussion: percussion normal Cardio Palpation: normal PMI Rate: regular rate Rhythm: regular rhythm Heart sounds: no murmurs and no rubs Peripheral pulses: Peripheral pulses 2+ throughout GI Inspection: Yes normal to inspection Palpation (GI): Soft to palpation, nontender, no guarding, not rigid and No hepatosplenomegaly present Percussion: Yes normal to percussion Auscultation: normal bowel sounds Rectal Exam - Female: deferred General: Yes bladder normal to palpation External Female Exam: lesion (Right labia majora 0.5 cm lesion) Speculum Exam - Vagina: normal appearance of the vagina, normal palpation, normal vaginal discharge and not erythematous Speculum Exam - Cervix: normal appearance of the cervix and normal palpation Bimanual exam- vagina & uterus: normal bimanual exam, normal palpation, uterine size normal, bladder normal to palpation, consistency normal and normal palpation Bimanual Exam- Adnexa, other: normal adnexae, no masses and no tenderness Assessment & Plan Assessment & Plan (1) Well woman exam: Code(s): Z01.419 - Encounter for gynecological examination (general) (routine) without abnormal findings Category: Medical Plan: Cotesting done. Counseled the patient about the recommended dietary allowance of 1000 mg of Calcium & 600 IU of vitamin D. The patient was instructed to perform monthly self-breast exams and to schedule an annual exam in a year; All questions answered and the patient verbalized understanding. Instructed the patient to schedule annual exam in a year (2) Labial lesion: Comment: Right labia majora Code(s): N90.89 - Other specified noninflammatory disorders of vulva and perineum Category: Medical Plan: Discussed with the patient the finding on physical exam showing a right labia majora lesion, recommended excision. Instructions given to patient to schedule a right labia majora excision appointment. All questions answered, the patient verbalized understanding. Coding Level of Care Code New Pt Prev Care 18-39yr([id number] Diagnoses Well woman exam Z01.419 Labial lesion N90.89
[2024-03-01 11:51] VITALS: BP 116/68; BMI 29.8
== END 2024-03-01 12:19 | disposition home or self-care (01) ==
LOC: HO.HWS 11:30
PROVIDERS: PCP Physician Assistant; Visit Provider Obstetrics & Gynecology
DX: Z01.419 Encounter for gynecological examination (general) (routine) without abnormal findings (principal); N90.89 Other specified noninflammatory disorders of vulva and perineum
CPT/HCPCS: 99385

== ENCOUNTER → 2024-04-23 12:41 | Outpatient (BNV) | payer OTHER, SELFPAY | PROVIDERS: PCP Physician Assistant; Visit Provider Radiology Diagnostic Radiology | DX: J98.59 Other diseases of mediastinum, not elsewhere classified (principal) | CPT/HCPCS: 71552 ==

== ENCOUNTER 2024-04-23 12:44 | Outpatient (REF) | payer OTHER, SELFPAY ==
--- NOTE | ~2024-04-23 | MR_ITS ---
CLINICAL HISTORY: J98.59 - Other diseases of mediastinum, not elsewhere classified MRI chest without/with contrast Comparison: 09/25/2023, 07/27/2023 Findings: Stable benign cyst in upper mediastinum. Increased signal on T2 sequences likely due to proteinaceous contents. No other significant abnormality in the chest. Impression: Stable benign mediastinal cyst This document has been electronically signed by: Alfredito Machado MD on 04/26/2024 18:52:02
[2024-04-23] MEDS: gadobutroL 7.5 ML VIAL IVPUSH (13:41)
== END 2024-04-23 12:45 | disposition home or self-care (01) ==
LOC: HO.MRI 12:44
PROVIDERS: PCP Physician Assistant; Visit Provider Physician Assistant
DX: J98.59 Other diseases of mediastinum, not elsewhere classified (principal)
CPT/HCPCS: 71552; A9585

== ENCOUNTER 2024-05-23 08:58 | Outpatient (REF) | payer OTHER, SELFPAY ==
--- OUTSIDE RECORDS SUMMARY | 2024-05-23 14:35 | XMS_ITS | Clinical Summary ---
Author Organization [facility] Address [address] [place] [address] Care Team Providers Care Oxygen Tank Filler Name Role Phone Ambar Bell MD Primary Care Provider Unav ailable Allergies Active Allergy Reactions Severity Noted Date Comments Fluocinolone Acetonide Rash/Dermatitis 07/18/19 15 topical Ketoconazole Rash/Dermatitis 07/17/2014 shampoo Medications Medication Sig Dispensed Refills Start Date End Date Status MedroxyPROGESTERone Acetate (DEPO-PROVERA IM) Inject into the muscle Every 3 Months. 0 Active cetirizine (ZYRTEC ALLERGY) 10 MG tablet Take 10 mg by mouth daily. 0 Active Ciclopirox 1 % Shampoo Use on the scalp every 2-3 days if needed 1 Bottle 1 08/08/2014 Active ibuprofen (ADVIL,MOTRIN) 800 MG tablet TAKE 1 TABLET BY MOUTH EVERY 8 HOURS NEEDED 90 Tab 3 11/29/2014 Active Active Problems Problem Noted Date Depression 08/03/2014 Eczema 08/03/2014 Immunizations Name Administration Dates Next Due DTaP 07/26/1990, 8,05/28/1986,03/27,01/25/1986 HIB 10/26/1987 Hepatitis B-3 Dose (<19yrs) 01/26/1998, 7,02/20/1997 MMR (Lohqyum-Apcqe-Bxsivze) 12/25/1994, 8 Meningococcal (Menactra) 04/01/2007 Polio (OPV) 07/26/1990, 8,03/27/1986,01/25 TD (STATE SUPPLIED FOR ADULT S AND CHILDREN) 05/17/1997 Tdap (Adacel) 11/24/2011 Family History Medical History Relation Name Comments Hypertension Father Cancer, Other Maternal Grandmother unknow n Hypertension Mother Relation Name Status Comments Father Maternal Grandmother Mother Social History Tobacco Use Types Packs/Day Years Used Date Smoking Tobacco: Never Smokeless Tobacco: Never Alcohol Use Standard Drinks/Week Comments No 0 (1 standard drink = 0.6 oz pur e alcohol) Sex Assigned at Date Recorded Not on file Last Filed Vital Signs Vital Sign Reading Time Taken Comments Blood Pressure 98/60 11/02/2014 10:05 AM EDT Pulse 80 11/02/2014 10:05 AM EDT Temperature 35.9 ??C (96.7 ??F) 11/02/2014 10:05 AM E DT Respiratory Rate 12 11/02/2014 10:05 AM EDT Oxygen Saturation - - Inhaled Oxygen Concentration - - Weight 65.3 kg (144 lb) 11/02/2014 10:05 AM EDT Height 153.7 cm (5' 0.5 ) 11/02/2014 10:05 AM ED T Body Mass Index 27.66 11/02/2014 10:05 AM EDT Plan of Treatment Health Maintenance Due Date Last Done Comments Covid-19 Vaccine (#1) 05/22/1986 TOBACCO CHECK/ADVISE 11/20/2003 BASELINE HEALTH EXAM 18-39 2004 CHOLESTEROL SCREENING 2005 CERVICAL CANCER SCREENING 05/16/2016 05/16/2013 DTAP/TDAP/TD (7 - Td or Tdap) 11/23/2021, 05/17/1997, 07/26/1990, Additional history exists INFLUENZA (#1) 2023 BMI CHECK/ADVISE 04/27/2024 PNEUMOCOCCAL VACCINE FOR HIG H RISK PATIENTS (#1) 2050 Care Teams Oxygen Tank Filler Relationship Specialty Start Date End Date Ambar Bell MD PCP - General Family Practice 05/11/15
== END 2024-05-23 08:59 | disposition home or self-care (01) ==
LOC: HO.LNP 08:58
PROVIDERS: PCP Physician Assistant; Visit Provider Obstetrics & Gynecology
DX: N90.89 Other specified noninflammatory disorders of vulva and perineum (principal)
CPT/HCPCS: 56605; 88304; 88305

== ENCOUNTER 2024-05-23 08:58 | Outpatient (AMB) | payer OTHER, SELFPAY ==
--- NOTE | 2024-05-23 09:07 | A.OFFVIS_ITS ---
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: Tooling Engineering Tech Present (Sandy) Accompanied by: Self / Same As Patient Allergies No Known Allergies Allergy (Verified 05/23/24 09:08) HPI Comments Details: Presenting for right triple lesion excisional biopsy [facility] Medical History Obesity (BMI 30.0-34.9) Dyslipidemia Anxiety Family History Father ADHD (attention deficit hyperactivity disorder) Hypercholesteremia Prostate cancer Alcoholism Psychiatric disorder Mother Bipolar 1 disorder, depressed Depression Anxiety HTN (hypertension) Hypercholesteremia Diabetes Alcoholism Psychiatric disorder Maternal Grandmother Diabetes Ovarian cancer Psychiatric disorder Other Mental disorder Substance abuse Social History Housing: Condominium Patient Tobacco Use Status: Never used Tobacco e-Cigarette/Vaping Use: Never Used Second Hand Smoke Exposure: No service: No 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 Current occupational exposures/hazards: No Cognitive needs: No Hearing needs: No Vision needs: No Female Reproductive History Menstrual Age of Menarche: 13 Review of Systems Const All systems reviewed & are unremarkable except as noted in HPI and below Reports as per HPI and Reports no additional complaints GI Reports no additional complaints Reports no additional complaints Office Procedures SPOT REMOVER Biopsy Before the procedure was started d/w patient the procedure, alternatives ( do nothing, medical rx), & all the risks associated with the procedure ( bleeding , infection, vulvar scarring, painful intercourse, injury to vessels, possible need for transfusion with all its risks) then patient signed the consent. Preop dx: Right labia majora lesion Op: Right labia majora lesion excision Post op: Same Anesthesia: Lidocaine 1% 3cc used Procedure: Using betadine the area was scrubbed and draped in the usual manner. 3 cc of lidocaine was used for anesthesia at the left vulvar lesion area ; using scissors and pickup the Right labia majora lesi was excised, Steri-Strips was used to approximate the edges. Pressure was used for hemostasis. The patient tolerated the procedure well. Discharge Instructions: The patient was instructed to schedule an appointment in 2 weeks for follow-up and to call if temp>100.4, area of the biopsy redness or pain, nausea/vomiting. This note was generated with a voice recognition program. Some errors may have been overlooked during the review of this note. Sometimes these errors may affect the content or meaning of a given sentence. [id number] of Vulva/Perineum Procedure code (CPT) selection complete Assessment & Plan Assessment & Plan (1) Labial lesion: Comment: Right labia majora Code(s): N90.89 - Other specified noninflammatory disorders of vulva and perineum Category: Medical Plan: Excisional biopsy done, see procedure note Orders: Orders AMB SPOT REMOVER Biopsy Today N90.89 - Other specified noninflammatory disorders of vulva and perineum Coding Level of Care Code Procedure Only Diagnoses Labial lesion N90.89 CPT Codes SPOT REMOVER Biopsy - CPT: 57057-Njfjcz of Vulva/Perineum ([id number])
== END 2024-05-23 09:26 | disposition home or self-care (01) ==
PROVIDERS: PCP Physician Assistant; Visit Provider Obstetrics & Gynecology
DX: N90.89 Other specified noninflammatory disorders of vulva and perineum (principal)
CPT/HCPCS: 56605

== ENCOUNTER 2025-03-09 08:27 | Outpatient (AMB) | payer OTHER, SELFPAY ==
--- NOTE | 2025-03-09 08:36 | MHC.PC.OV ---
Vital Signs 03/09/25 08:40 Height 5 ft Weight 163 lb BMI 31.8 BP 102/72 Blood Pressure Location Lt brachial Position Sitting Respiration 12 Pulse 80 Pulse Source Pulse Oximeter Temp 98.1 F Temp Source Oral Pulse Oximetry (%) 99 Oxygen Delivery Method Room Air Intake Visit Reasons: Reschedule Headachs /depression med Intake Note: Follow up headaches, medication. Vp Medical Required: No Allergies No Known Allergies Allergy (Verified 03/09/25 08:37) Medication List - Last Reconciled 03/09/25 by Krystyna Connelly PA-C bupropion HCl XL (Wellbutrin XL) 300 mg PO QAM cetirizine (Zyrtec) 10 mg PO DAILY PRN sertraline 100 mg PO DAILY Tobacco use date assessed: 03/09/25 Dental Screening Dental Screen Date: 03/09/25 Did you have a dental visit in the last 12 months?: Yes Did you have a dental problem in the last 6 months where you did not have access to dental care?: No Was dental information given to patient?: Patient has dentist HPI Reschedule Headachs /depression med HPI Details Pt is a 39 y/o female who presents today for a follow up. She has not been seen in over a year. Does have a couple concerns today. Neuro: She complains today of headaches that start around the time of her menses. She states it does seem to start in the morning and can last 2-3 days. It does not fully respond to otc medications. She states that her sister had Nurtec which is helpful when she takes this. She says that she has never had headaches like this that have been so persistent. This has been going on for the past year. She gets nausea and severe headaches. No vision changes, numbness, tingling or weakness. No change in her periods. States that she is very regular and there has been no change in bleeding. No change in diet. She is overdue for an eye exam. Believes that she has stayed well hydrated. 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 Psych: Over the last year she has noticed an increase in anxiety. It has been worse in the more recent months. She is on Wellbutrin 300 mg daily and sertraline 100 mg daily. She states that the Wellbutrin does appear to be helpful for the depression but she has not noticed significant improvement of anxiety. She is worried about switching from these medications as she tolerates them well. She states in the past anytime she has tried to taper off of sertraline she has had zapping headaches. No SI/HI. No new triggers. Work as okay for her. No significant life stressors. [facility] Medical History Obesity (BMI 30.0-34.9) Dyslipidemia Anxiety Family History Father ADHD (attention deficit hyperactivity disorder) Hypercholesteremia Prostate cancer Alcoholism Psychiatric disorder Mother Bipolar 1 disorder, depressed Depression Anxiety HTN (hypertension) Hypercholesteremia Diabetes Alcoholism Psychiatric disorder Maternal Grandmother Diabetes Ovarian cancer Psychiatric disorder Other Mental disorder Substance abuse Social History [facility] Patient Tobacco Use Status: Never used Tobacco e-Cigarette/Vaping Use: Never Used Second Hand Smoke Exposure: No service: No 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 Current occupational exposures/hazards: No Cognitive needs: No Hearing needs: No Vision needs: No Female Reproductive History Menstrual Age of Menarche: 13 Questionnaire PHQ-9 Over the last 2 weeks, how often have you been bothered by any of the following problems? 1. Little interest or pleasure in doing things: nearly every day 2. Feeling down, depressed, or hopeless: nearly every day 3. Trouble falling or staying asleep, or sleeping too much: nearly every day 4. Feeling tired or having little energy: nearly every day 5. Poor appetite or overeating: nearly every day 6. Feeling bad about yourself - or that you are a failure or have let yourself or your family down: several days 7. Trouble concentrating on things, such as reading the newspaper or watching television: nearly every day 8. Moving or speaking so slowly that other people could have noticed. Or the opposite - being so fidgety or restless that you have been moving around a lot more than usual: nearly every day 9. Thoughts that you would be better off or of hurting yourself in some way: not at all Total score: 22 Depression Screening Interpretation: Positive Depression Screening Done: Yes 27540 - PHQ-9 Billing: Yes Source: Developed by Drs. Donald Lawler, Candelaria Sebastian, Uriel Pineda and colleagues, with an educational reyna from [employer]. Thrive Questionnaire Date Thrive assessed: 03/09/25 I am a: Patient What is your living situation today?: I have a steady place to live Within the past 12 months, did the food you bought not last and you didn't have the money to get more?: Never true Within the past 12 months, did you worry whether your food would run out before you got money to buy more?: Never true Do you have trouble paying for medicines?: No Do you have trouble getting transportation to medical appointments?: No Do you have trouble paying your heating and electricity bill?: No Do you have trouble taking care of your child, family member or friend?: No Do you have trouble with day-to-day activities such as bathing, preparing meals, shopping, managing finances, etc.?: No Are you currently unemployed and looking for a job?: No Are you interested in more education?: No Please select the resources that you would like help with: None Currently or been in a relationship where the following occur: No concerns reported THRIVE Score: 0 AUDIT C Alcohol Use Questionnaire (AUDIT-C) 1. How often do you have a drink containing alcohol?: Never 3. How often do you have six or more drinks on one occasion?: Never Total Score: 0 JANE-7 AMB Questionnaire JANE-7 Date JANE - 7 assessed: 03/09/25 Feeling nervous, anxious, or on edge: 1 = Several days Not being able to stop or control worryin = Several days Worrying too much about different things: 1 = Several days Trouble relaxin = Several days Being so restless that it is hard to sit still: 1 = Several days Becoming easily annoyed or irritable: 0 = Not at all Feeling afraid as if something awful might happen: 0 = Not at all Total JANE-7 score (0-4 normal; 5-9 mild; 10-14 moderate; 15-21 severe): 5 Source: Developed by Drs. Donald Lawler, Uriel Wong and colleagues, with an educational reyna from [employer]. JANE-7 Assessment Billing JANE-7 Assessment Tool: JANE-7 Assessment 74946 Physical exam (Primary Care) Vital Signs: Last Vital Signs Temp 98.1 F 03/09/25 08:40 Pulse 80 03/09/25 08:40 Resp 12 03/09/25 08:40 BP 102/72 03/09/25 08:40 Pulse Ox 99 03/09/25 08:40 Oxygen Delivery Method Room Air 03/09/25 08:40 BMI result Body Mass Index 31.8 Tobacco/Smoking Status: Tobacco use Status Tobacco use date assessed 03/09/25 03/09/25 08:43 Patient Tobacco Use Status Never used Tobacco 03/09/25 08:43 e-Cigarette/Vaping Use Never Used 03/09/25 08:43 PHQ-9: PHQ-9 Score PHQ-9: Total score 22 03/09/25 08:43 Depression Screening Interpretation: Positive Thrive Assessment: Date of Thrive Assessment Date Thrive assessed 03/09/25 03/09/25 08:43 Currently or been in a relationship where the following occur: No concerns reported Const Orientation/consciousness: patient oriented x3 HENMT Ears: hearing grossly normal bilaterally Neck Thyroid: Thyroid normal Lymphatic: no lymphadenopathy noted Resp Auscultation: clear to auscultation bilaterally Cardio Rate: regular rate Rhythm: regular rhythm Heart sounds: S1 normal heart sound present and S2 normal heart sound present GI Inspection: Yes normal to inspection Palpation (GI): Soft to palpation and Other GI palpation findings present (nontender, no cva tenderness) Auscultation: normoactive bowel sounds Rectal Exam - Female: deferred Skin General skin exam: no rashes or lesions noted Neuro General: patient oriented x3, gait normal, no focal motor deficits, CN's II-XI intact bilaterally and deep tendon reflexes 2+ bilaterally Cognition (Neuro): normal cognition Gait exam (Neuro): Normal gait present Motor exam (neuro): 5/5 motor strength present throughout Coordination: [id number] test normal and Romberg test negative Coding Level of Care Code Est Pt Level 4 (36414) Complex EM visit Add On G2211 Diagnoses Anxiety with depression F41.8 Frequent headaches R51.9 Additional Codes JANE-7 Assessment Billing - JANE-7 Assessment Tool: JANE-7 Assessment 50470 ([id number]) PHQ-9 - 12444 - PHQ-9 Billing: Yes ([id number]) Assessment & Plan Assessment & Plan (1) Anxiety with depression: Code(s): F41.8 - Other specified anxiety disorders Category: Medical Plan: We will increase sertraline. Short term follow up. Sooner if anything worsens or changes. We also did discuss possibly reducing the Wellbutrin/stopping it. (2) Frequent headaches: Code(s): R51.9 - Headache, unspecified Category: Medical Plan: Labs ordered MRI ordered We will use sumatriptan as needed Short term follow up. Orders: Orders TSH reflex Free T4 Today F41.8 - Other specified anxiety disorders, R51.9 - Headache, unspecified Vitamin B12 and Folate Today F41.8 - Other specified anxiety disorders, R51.9 - Headache, unspecified IRON PROFILE Today F41.8 - Other specified anxiety disorders, R51.9 - Headache, unspecified Ferritin Today F41.8 - Other specified anxiety disorders, R51.9 - Headache, unspecified Magnesium Today F41.8 - Other specified anxiety disorders, R51.9 - Headache, unspecified MR head/brain wo con Today F41.8 - Other specified anxiety disorders, R51.9 - Headache, unspecified Complete Blood Count Auto Diff Today F41.8 - Other specified anxiety disorders, R51.9 - Headache, unspecified Comprehensive Met. Panel Today F41.8 - Other specified anxiety disorders, R51.9 - Headache, unspecified Medications: New sumatriptan succinate take 1 tab at onset of headache; if no relief may repeat 1 tab after at least 2 hrs; max = 4 tabs/24 hr PO 10 tabs 0RF sertraline take with 25 mg tab for a total of 125 mg daily 100 mg PO DAILY 90 tabs 1RF sertraline take with the 100 mg tab for a total of 125 mg daily 25 mg PO DAILY 90 tabs 1RF Discontinued sertraline Discontinued Reason: Doctor's Order 100 mg PO DAILY 90 tabs 1RF F41.8 - Other specified anxiety disorders
[2025-03-09 08:40] VITALS: BP 102/72; PULSE 80; RESP 12; TEMP 36.7; O2SAT 99; BMI 31.8
== END 2025-03-09 09:02 | disposition home or self-care (01) ==
LOC: HO.HMCFM 08:27
PROVIDERS: PCP Physician Assistant; Visit Provider Physician Assistant
DX: F41.8 Other specified anxiety disorders (principal); R51.9 Headache, unspecified

== ENCOUNTER → 2025-03-09 08:27 | Outpatient (BNVA) | payer OTHER, SELFPAY | PROVIDERS: PCP Physician Assistant; Visit Provider Physician Assistant | DX: F41.8 Other specified anxiety disorders (principal); R51.9 Headache, unspecified; Z13.31 Encounter for screening for depression; Z13.39 Encounter for screening examination for other mental health and behavioral disorders | CPT/HCPCS: 96127 ==